=== PATIENT | male | born 1945 | race Caucasian/White ===

== ENCOUNTER → 2018-04-06 15:10 | Outpatient (CLI) | payer MEDICARE, SELFPAY ==
[2018-04-06 16:02] LABS: Add Manual Diff / Slide Review NO; Basophils Percent Auto 0.7 % (0-2); Eosinophils Percent Auto 5.6 % (2-4); Hemoglobin 14.6 g/dL (13.5-17.5); Lymphocytes Percent Auto 12.8 % (25-40); Mean Corpuscular HGB Conc 34.7 % (30-36); Mean Corpuscular Hemoglobin 33.9 PG (26-34); Mean Corpuscular Volume 97.8 fL (80-100); Monocytes Percent Auto 8.4 % (3-14); Neutrophils Absolute Auto 4300 /uL (3000-5900); Neutrophils Percent Auto 72.5 % (50-75); Platelet Count 183 X10^3/uL (150-400); Red Blood Cell Count 4.29 X10^6/uL (4.5-5.9); Red Cell Distribution Width 12.9 % (11.6-14.8)
[2018-04-06 17:21] LABS: Alanine Aminotransferase 46 IU/L (21-72); Albumin 3.5 g/dL (3.5-5.0); Albumin Globulin Ratio 1.3 (1.0-2.8); Alkaline Phosphatase 80 U/L (38-126); Aspartate Aminotransferase 34 IU/L (17-59); BUN Creatinine Ratio 24.4 (6-22); Bilirubin Total 0.9 mg/dL (0.2-1.3); Blood Urea Nitrogen 22 mg/dL (9-20); Calcium 9.2 mg/dL (8.4-10.2); Carbon Dioxide 28 mmol/L (22-32); Chloride 101 mmol/L (98-107); Estimated Glomerular Filt Rate > 60.0 mL/min (>60); Globulin 2.8 g/dL (1.7-4.1); Glucose 171 mg/dL (80-110); HEMOLYSIS < 15 (0-50); Potassium 4.5 mmol/L (3.4-5.1); Sodium 138 mmol/L (137-145); Total Protein 6.3 g/dL (6.3-8.2)
[2018-04-08 15:30] LABS: Cancer (Carbohydrate) Ag 19-9 < 3 U/mL (< 34)
== END ==
PROVIDERS: PCP Family Medicine; Visit Provider Internal Medicine
DX: C23 Malignant neoplasm of gallbladder (principal)
CPT/HCPCS: 36415; 80053; 85025; 86301

== ENCOUNTER 2018-05-15 15:13 | Inpatient (IN) | payer MEDICARE, SELFPAY ==
[2018-05-15 15:32] VITALS: BP 178/95; PULSE 65; RESP 22; TEMP 35.9; O2SAT 94; BMI 36.6
--- NOTE | 2018-05-15 16:05 | DI.RAD.S_ITS ---
PROCEDURE: XR CHEST 1V INDICATIONS: chest pain TECHNIQUE: One view of the chest was acquired. COMPARISON: [facility], CR, XR CHEST 1VW (PORTABLE), 05/09/2017, 15:34. [facility], CT, CT ANGIO CHEST PE, 05/09/2017, 18:05. FINDINGS: Surgical changes and devices: Surgical clips in the lower neck. Lungs and pleura: No pleural effusions or pneumothorax. Lungs are clear. Mediastinum: Mediastinal contours appear normal. Heart size is normal. Bones and chest wall: No suspicious bony lesions. Overlying soft tissues appear unremarkable. IMPRESSION: No acute cardiopulmonary disease. Dictated by: Madhavi Aleman M.D. on 05/15/2018 at 16:18 Approved by: Madhavi Aleman M.D. on 05/15/2018 at 16:21
[2018-05-15] MEDS: ONDANSETRON 4 MG/2 ML INJ IV (18:21)
--- NOTE | 2018-05-15 18:22 | ED.ABDPAIN ---
HPI - Abdominal Pain General Chief Complaint: Abdominal Pain Stated Complaint: STOMACH PAIN Time Seen by Provider: 05/15/18 18:22 Source: patient and family Mode of arrival: ambulatory Limitations: no limitations History of Present Illness HPI narrative: 73-year-old male, former smoker, with relatively recent diagnosis of gallbladder neoplasm presents with epigastric pain and the inability to eat and drink for the past few days. His cholecystectomy was about a year and half ago and subsequent chemo ended last July. His pain is worse with motion and improves with rest. He denies fever or chills. He has had decreased bowel movements. He has not been able to eat food or water at home due to persistent vomiting MD complaint: abdominal pain Onset (ago): day(s) Pain Consistency: constant Location: epigastric Severity: severe Quality: cramping and aching Radiation: epigastric Migration to: no migration Relieving factors: nothing Exacerbating factors: eating Associated symptoms: nausea and vomiting Related Data Home Medications Medication Instructions Recorded Confirmed latanoprost [Xalatan] 1 drp OU HS #2.5 ml 03/08/16 05/15/18 amlodipine [Norvasc] 5 mg PO QDAY #0 09/05/17 05/15/18 levothyroxine 12.5 mcg PO QAM #0 09/05/17 02/05/18 levothyroxine 150 mcg PO QAM #0 09/05/17 05/15/18 brimonidine-timolol [Combigan] 1 drp OPHTHALMIC (EYE) DIRECTED 05/15/18 05/15/18 finasteride 5 mg PO DAILY 05/15/18 05/15/18 fluoxetine 20 mg PO DAILY 05/15/18 05/15/18 metformin 500 mg PO BID 05/15/18 05/15/18 methocarbamol [Robaxin-750] 750 mg PO QIDP PRN 05/15/18 05/15/18 olopatadine 1 dose OPHTHALMIC (EYE) DIRECTED 05/15/18 05/15/18 simvastatin 20 mg PO DAILY 05/15/18 05/15/18 triamterene-hydrochlorothiazid 0.5 tab PO DAILY 05/15/18 05/15/18 zolpidem 5 mg PO BEDTIME 05/15/18 05/15/18 Previous Rx's Medication Instructions Recorded montelukast 10 mg tablet 10 mg PO BEDTIME #30 tab 02/06/18 hydrocodone 5 mg-acetaminophen 325 1 tab PO Q6HP PRN #60 tab 03/26/18 mg tablet trazodone 50 mg tablet 50 mg PO BEDTIME 90 Days #90 tab 05/15/18 Allergies Allergy/AdvReac Type Severity Reaction Status Date / Time Penicillins [PENICILLINS] Allergy Mild RASH Verified 05/15/18 15:38 Review of Systems Review of Systems All systems reviewed & are unremarkable except as noted in HPI and below Constitutional Denies chills, Denies fever(s), Denies lethargy and Denies weakness Eyes Denies change in vision, Denies eye discharge, Denies irritation and Denies loss of vision ENT Ears, Nose, Mouth, and Throat: Denies change in voice, Denies neck pain and Denies sore throat Cardiovascular Denies chest pain, Denies irregular heart rhythm, Denies lightheadedness, Denies palpitations, Denies dyspnea, Denies dyspnea on exertion and Denies orthopnea Respiratory Denies cough, Denies dyspnea, Denies dyspnea on exertion and Denies wheezing Gastrointestinal Gastrointestinal: Reports abdominal pain, Denies change in bowel habits, Denies diarrhea, Reports nausea and Reports vomiting Genitourinary Denies hematuria, Denies flank pain, Denies urinary incontinence and Denies urinary urgency Musculoskeletal Denies neck pain Integumentary/Breasts Denies pruritus, Denies erythema, Denies rash and Denies wounds Neurologic Denies confusion, Denies loss of vision and Denies weakness Psychiatric Denies anxiety, Denies confusion, Denies depression, Denies homicidal ideation and Denies suicidal ideation Endocrine Denies palpitations Hematologic/Lymphatic Denies easy bruising Allergic/Immunologic Denies wheezing [facility] Medical History Allergic rhinitis (Chronic) Benign prostatic hyperplasia with lower urinary tract symptoms (Chronic 05/16/16) 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) Essential hypertension (Chronic 05/16/16) Glaucoma (Chronic 05/16/16) Acquired hypothyroidism (Chronic 05/16/16) Left shoulder pain (Chronic 05/16/16) Pure hypercholesterolemia (Chronic 05/16/16) Restless legs syndrome (Chronic 05/16/16) Type 2 diabetes mellitus without complication, without long-term current use of insulin (Chronic 05/16/16) Depression (Chronic 09/02/16) Right-sided low back pain with right-sided sciatica (Chronic 09/02/16) 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) Chronic fatigue (Chronic 09/05/17) 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) Allergic rhinitis (Chronic Unknown) BPH (benign prostatic hyperplasia) (Chronic Unknown) Depression (Chronic Unknown) Diabetes (Chronic 09/2011) Erectile dysfunction (Chronic Unknown) Glaucoma (Chronic 2005) Hearing loss (Chronic Unknown) Hyperlipemia (Chronic 2008) Hypertension (Chronic 2008) Hypothyroidism (Chronic Unknown) Low testosterone (Chronic Unknown) Osteoarthritis (Chronic Unknown) Sleep apnea (Chronic 1994) Vertigo (Chronic ~1999) Actinic keratosis (Resolved ) Ankle pain (Resolved 1987) Cataracts, bilateral (Resolved ~2004) Chickenpox (Resolved) Colon polyps (Resolved 2014) Fractures (Resolved 1971) Measles (Resolved) Mumps (Resolved) Plantar warts (Resolved ) Retinal detachment (Resolved 1985) Shoulder pain (Resolved ~2014) Thyroid cancer (Resolved 09/2009) Surgical History H/O detached retina repair (Resolved 1985) H/O resection of liver (Resolved ~2016) History of knee replacement (Resolved 08/2014) Hx of cataract surgery (Resolved ~2004) Hx of cholecystectomy (Resolved ~2016) Hx of thyroidectomy (Resolved 2009) S/P discectomy (Resolved 2005) Family History Father Cancer Diabetes mellitus Mother No problems noted. Social History marital status: household members: spouse housing: house Smoking Status: Former smoker alcohol intake: current substance use type: does not use Exam Narrative Exam Narrative: 73-year-old male, obviously feeling unwell and visibly dehydrated with dry mucous membranes Initial Vital Signs Initial Vital Signs: Vital Signs Temperature 96.7 F L 05/15/18 15:32 Pulse Rate 65 05/15/18 15:32 Respiratory Rate 22 05/15/18 15:32 Blood Pressure 178/95 H 05/15/18 15:32 Pulse Oximetry 94 05/15/18 15:32 Const General: cooperative, well developed and in distress Nutritional Appearance: well nourished Orientation: alert, awake, oriented x3 and not confused [facility] Head: normocephalic and atraumatic Ears: external ears normal and TM's normal bilaterally Nose: external nose normal and No nasal discharge Face and sinus: sinuses nontender, face symmetric, no sinus tenderness and dry mucous membranes Mouth: oral mucosae normal and moist mucous membranes Teeth and gingiva: dentition normal Throat: tonsils normal and uvula midline Eyes General: appearance normal, both eyes and all related structures Eyelids: eyelids normal Conjunctivae: conjunctivae normal Sclera: sclerae normal Pupils: PERRL EOM: EOM intact bilaterally Neck Neck: normal visual inspection, trachea midline, No lymphadenopathy, No midline deformity and No JVD Lymphatic: No lymphedema Chest Chest: normal inspection of the chest Resp Effort & Inspection: normal respiratory effort, able to speak in complete sentences, no respiratory distress and no use of accessory muscles Auscultation: clear to auscultation bilaterally, no rales, no rhonchi and no wheezes Cardio Rate: regular rate Rhythm: regular rhythm Heart Sounds: no click, no gallops, no murmurs and no rubs Pulses: normal peripheral pulses GI Inspection: non-distended Palpation: soft, no hepatosplenomegaly, No guarding, No pulsatile mass and tender ( in the epigastric) Auscultation: normal bowel sounds Back/Spine/Pelvis Back: No CVA tenderness Cervical Spine: cervical ROM normal and No pain with cervical ROM Thoracic/Lumbar Spine: thoracic and lumbar spine normal to inspection Skin General: no rashes or lesions noted, No jaundice and No petechiae Neuro General: alert, oriented x3, gait normal and no focal motor deficits Speech: speech normal Extrem General: full ROM, no clubbing, cyanosis or edema, no pedal edema and no calf tenderness Psych Appearance: well kempt Mental Status: mental status grossly normal Attitude: cooperative Thought Content: normal and suicidality Judgment: judgment good Course Course Narrative: patient required multiple doses of IV pain meds during his visit Decision to Admit Date: 05/15/18 Decision to Admit time: 21:31 Orders Ordered: ED Orders 05/15/18 16:05 XR chest 1V Stat EKG-12 Lead Stat 05/15/18 18:18 Complete Blood Count AUTO DIFF Stat Comprehensive Metabolic Panel Stat Lipase Stat Troponin & CK Cardiac Panel Stat 05/15/18 18:25 Partial Thromboplastin Time Stat Prothrombin Time INR Stat 05/15/18 18:30 CT abdomen pelvis w con Stat 05/15/18 21:31 Education, smoking cessation ONGOING 05/16/18 05:00 Basic Metabolic Panel Routine CKMB Panel (CK + CKMB) Routine Complete Blood Count AUTO DIFF Routine Troponin I Routine Enoxaparin Sodium (Lovenox) 40 mg SUBCUT DAILY [facility] Sodium Chloride (Normal Saline 0.9%) 1,000 mls @ 150 mls/hr IV CONT RENETTA Last Admin: 05/15/18 21:52 Dose: 150 mls/hr Morphine Sulfate (Morphine) 2 mg IV Q3H PRN PRN Reason: Pain, Moderate (4-6) Ondansetron HCl (Zofran) 4 mg IV Q4HR PRN PRN Reason: Nausea And Vomiting Oxycodone HCl (Percolone) 5 mg PO Q6HR PRN PRN Reason: Pain, Moderate (4-6) Pantoprazole Sodium (Protonix) 40 mg IV BID [facility] Discontinued Medications Hydromorphone HCl (Dilaudid) 1 mg IV NOW ONE Stop: 05/15/18 18:31 Last Admin: 05/15/18 19:01 Dose: 1 mg Hydromorphone HCl (Dilaudid) 1 mg IV NOW ONE Stop: 05/15/18 19:54 Last Admin: 05/15/18 19:55 Dose: 1 mg Sodium Chloride (Normal Saline 0.9%) 1,000 mls @ 1,000 mls/hr IV BOLUS ONE Stop: 05/15/18 19:29 Last Infusion: 05/15/18 19:55 Dose: 0 mls/hr Admin: 05/15/18 19:01 Dose: 1,000 mls/hr Ondansetron HCl (Zofran) 4 mg IV NOW ONE Stop: 05/15/18 17:59 Last Admin: 05/15/18 18:21 Dose: 4 mg Pantoprazole Sodium (Protonix) 40 mg IV NOW ONE Stop: 05/15/18 20:31 Last Admin: 05/15/18 21:14 Dose: 40 mg Reevaluation(s) Reevaluation #1: slight improvement after 1st dose of IV pain meds Reevaluation #2: pain has returned, we will order more Dilaudid Consultations Consultation #1: Dr. Julian happy to accept patient on her service, will write orders Vital Signs - 8 hr 05/15/18 15:32 05/15/18 19:00 05/15/18 20:30 Temperature 96.7 F L Pulse Rate 65 70 70 Respiratory Rate 22 15 17 Blood Pressure 178/95 H Blood Pressure [Left Arm] 174/88 H 135/83 Pulse Oximetry 94 93 97 05/15/18 21:28 05/15/18 21:35 Temperature 98.1 F 97.5 F L Pulse Rate 76 74 Respiratory Rate 18 19 Blood Pressure 153/83 H 146/87 H Blood Pressure [Left Arm] Pulse Oximetry 96 94 MDM - Abdominal Pain Lab Data Result diagrams: 05/15/18 18:18 05/15/18 18:18 Lab Results 05/15/18 05/15/18 05/15/18 Range/Units 18:18 18:18 18:25 WBC 9.1 (4.5-11.0) X10^3/uL RBC 5.01 (4.5-5.9) X10^6/uL Hgb 16.6 (13.5-17.5) g/dL Hct 48.6 (41-53) % MCV 97.1 (80-100) fL MCH 33.2 (26-34) PG MCHC 34.2 (30-36) % RDW 12.6 (11.6-14.8) % Plt Count 216 (150-400) X10^3/uL Neut % (Auto) 84.8 H (50-75) % Lymph % (Auto) 8.3 L (25-40) % Dickinson % (Auto) 5.4 (3-14) % Eos % (Auto) 1.1 L (2-4) % Baso % (Auto) 0.4 (0-2) % Neut # (Auto) 7700 H (5900-8033) /uL PT 13.3 H (10.1-12.7) SECONDS INR 1.2 (0.9-1.3) APTT 32 (26.4-36.2) SECONDS Sodium 138 (137-145) mmol/L Potassium 3.9 (3.4-5.1) mmol/L Chloride 99 (98-107) mmol/L Carbon Dioxide 28 (22-32) mmol/L BUN 20 (9-20) mg/dL Creatinine 0.90 (0.66-1.25) mg/dL Estimated GFR > 60.0 (>60) mL/min BUN/Creatinine Ratio 22.2 H (6-22) Glucose 158 H (80-110) mg/dL Calcium 9.4 (8.4-10.2) mg/dL Total Bilirubin 1.9 H (0.2-1.3) mg/dL AST 48 (17-59) IU/L ALT 50 (21-72) IU/L Alkaline Phosphatase 65 (38-126) U/L Total Creatine Kinase 486 H (55-170) U/L CK-MB (CK-2) 2.39 H (<2.37) ng/mL CK-MB (CK-2) Rel Index 0.5 L (1.5-5.0) % Troponin I 0.039 H (0.01-0.034) ng/mL Total Protein 7.6 (6.3-8.2) g/dL Albumin 4.4 (3.5-5.0) g/dL Globulin 3.2 (1.7-4.1) g/dL Albumin/Globulin Ratio 1.4 (1.0-2.8) Lipase 19 L (23-300) U/L Point of care testing: Point of Care Testing Glucose POC 120 Discharge Plan Departure Patient Disposition: Admitted as Observation Clinical Impression: Acute duodenitis Discharge Date/Time: 05/15/18 21:29 Interventions: ED Discharge Assessment Last Done: 05/15/18 21:28 Admit Date/Time: 05/15/18 20:32 Admit Provider: Linda Julian
--- NOTE | 2018-05-15 18:30 | DI.CT.S_ITS ---
PROCEDURE: CT ABDOMEN PELVIS W CON INDICATIONS: severe abdominal pain, history of Gallbladder cancer s/p chemo TECHNIQUE: After the administration of intravenous contrast, 5 mm thick sections acquired from the diaphragm to the symphysis. 5 mm coronal and sagittal reformats were acquired. For radiation dose reduction, the following was used: automated exposure control, adjustment of mA and/or kV according to patient size. COMPARISON: [facility], CT, CT ANGIO CHEST PE, 05/09/2017, 18:05. [facility], CT, C-SPINE WITHOUT CONTRAST, 03/08/2016, 13:04. FINDINGS: Image quality: Excellent. ABDOMEN: Lung bases: Lung bases are clear. Heart size is normal. Solid organs: There is a 2.1 cm hypoattenuating lesion involving the anterior right hepatic lobe adjacent the gallbladder fossa, which may or present postsurgical change from gallbladder resection versus a new lesion. Gallbladder is absent. There is mild dilatation of the common bile duct, which can be seen post cholecystectomy. There is a small volume of free fluid in about the inferior vena cava. The pancreas, spleen, and bilateral adrenal glands are unremarkable. Multiple subcentimeter hypoattenuating foci within the kidneys bilaterally are too small to fully characterize on this exam but likely represent renal cysts. There are is a 2.0 cm renal cyst arising from the inferior poor the left kidney no hydronephrosis. Peritoneum and bowel: There is circumferential wall thickening and mucosal hyperemia of the duodenum with adjacent periduodenal fat stranding and fluid.. No free fluid or air. Calcification of the abdominal aorta and branch vessels. Nodes and vessels: No retroperitoneal or mesenteric adenopathy by size criteria. Aorta and inferior vena cava are normal in size. Miscellaneous: No ventral hernias. PELVIS: Genitourinary: Bladder wall thickness is normal. Miscellaneous: No inguinal hernias or adenopathy. Bones: No suspicious bony lesions. No vertebral body compression fractures. Moderate multilevel degenerative changes of the lumbar spine with facet arthropathy noted. IMPRESSION: #1. Circumferential wall thickening and mucosal hyperemia of the duodenum with adjacent fat stranding and fluid, consistent with acute duodenitis. An infiltrating malignancy is not excluded. #2. 2.1 cm anterior right hepatic lobe lesion, which may represent sequela from prior gallbladder resection versus a hypoattenuating hepatic metastasis. No comparison abdominal imaging is available. Attention on followup CT of the abdomen recommended. Dictated by: Gildardo Lopez M.D. on 05/15/2018 at 19:47 Approved by: Gildardo Lopez M.D. on 05/15/2018 at 20:00
[2018-05-15 18:31] LABS: Add Manual Diff / Slide Review NO; Basophils Percent Auto 0.4 % (0-2); Eosinophils Percent Auto 1.1 % (2-4); Hematocrit 48.6 % (41-53); Hemoglobin 16.6 g/dL (13.5-17.5); Lymphocytes Percent Auto 8.3 % (25-40); Mean Corpuscular HGB Conc 34.2 % (30-36); Mean Corpuscular Hemoglobin 33.2 PG (26-34); Mean Corpuscular Volume 97.1 fL (80-100); Monocytes Percent Auto 5.4 % (3-14); Neutrophils Absolute Auto 7700 /uL (3000-5900); Neutrophils Percent Auto 84.8 % (50-75); Platelet Count 216 X10^3/uL (150-400); Red Blood Cell Count 5.01 X10^6/uL (4.5-5.9); Red Cell Distribution Width 12.6 % (11.6-14.8); White Blood Cell Count 9.1 X10^3/uL (4.5-11.0)
[2018-05-15 18:38] LABS: Alanine Aminotransferase 50 IU/L (21-72); Albumin 4.4 g/dL (3.5-5.0); Albumin Globulin Ratio 1.4 (1.0-2.8); Alkaline Phosphatase 65 U/L (38-126); Aspartate Aminotransferase 48 IU/L (17-59); BUN Creatinine Ratio 22.2 (6-22); Bilirubin Total 1.9 mg/dL (0.2-1.3); Blood Urea Nitrogen 20 mg/dL (9-20); Calcium 9.4 mg/dL (8.4-10.2); Carbon Dioxide 28 mmol/L (22-32); Chloride 99 mmol/L (98-107); Creatine Kinase 486 U/L (55-170); Estimated Glomerular Filt Rate > 60.0 mL/min (>60); Globulin 3.2 g/dL (1.7-4.1); Glucose 158 mg/dL (80-110); HEMOLYSIS < 15 (0-50); Lipase 19 U/L (23-300); Potassium 3.9 mmol/L (3.4-5.1); Sodium 138 mmol/L (137-145); Total Protein 7.6 g/dL (6.3-8.2)
[2018-05-15 18:39] LABS: INR 1.2 (0.9-1.3); Prothrombin Time 13.3 SECONDS (10.1-12.7)
[2018-05-15 18:42] LABS: PTT Partial Thromboplastin Tim 32 SECONDS (26.4-36.2)
[2018-05-15 18:50] LABS: Troponin I 0.039 ng/mL (0.01-0.034)
[2018-05-15 18:54] LABS: CKMB % Relative Index 0.5 % (1.5-5.0); Creatine Kinase MB 2.39 ng/mL (<2.37)
[2018-05-15 19:00] VITALS: BP 174/88; PULSE 70; RESP 15; O2SAT 93
[2018-05-15] MEDS: HYDROMORPHONE 1 MG INJ IV ×2 (19:01→19:55)
[2018-05-15] MEDS: SODIUM CHLORIDE 0.9% 1,000 ML 1000 ML IV (19:01)
[2018-05-15 20:30] VITALS: BP 135/83; PULSE 70; RESP 17; O2SAT 97
[2018-05-15] MEDS: PANTOPRAZOLE 40 MG VIAL IV (21:14)
[2018-05-15 21:28] VITALS: BP 153/83; PULSE 76; RESP 18; TEMP 36.7; O2SAT 96
[2018-05-15 21:35] VITALS: BP 146/87; PULSE 74; RESP 19; TEMP 36.4; O2SAT 94
[2018-05-15 21:39] VITALS: BMI 36.2
[2018-05-15] MEDS: SODIUM CHLORIDE 0.9% 1,000 ML 150 ML IV (21:52)
--- NOTE | 2018-05-15 22:01 | PC.NURSE ---
Pt to acute care from ER. Transferred via stretcher, ambulated to bed, unsteady gait at baseline. Abdominal pain 4/10, reports meds given in ER helping pain level. Alert/oriented. Reports last BM 5 days ago. Oriented to room and call light. Bed alarm on.
[2018-05-16] VITALS (16 sets, daily range): BP systolic 115–162; BP diastolic 67–97; PULSE 60–72; RESP 14–92; TEMP 36.4–36.8; O2SAT 92–98
--- NOTE | 2018-05-16 | PATH_ITS ---
[facility] Accession Number: [id number] . 01 Material submitted: . PART A: DUODENUM: 1ST AND 2ND PART JUNCTION PART B: RANDOM GASTRIC BIOPSIES . 02 Diagnosis: A. Biopsy Duodenum, First and Second Parts: Duodenal mucosa with focal acute inflammation and prominent area of ulceration. Negative for evidence of neoplasm. . B. Random Gastric Biopsies: Mucosal hyperemia without associated significant inflammation involving antral and fundic mucosa. Negative for evidence of Helicobacter on H/E stain. Negative for intestinal metaplasia. Negative for dysplasia and malignancy. MRV/05/19/2018 . 02 Electronically signed: . Everton Stratton MD, Pathologist NPI- [id number] . 01 Gross description: . Received two formalin-filled containers, both labeled with the patient's name: . A. In a container labeled duodenum first, second part of junction, are two 0.1 cm portions of tissue, entirely submitted in cassette A. B. In a container labeled stomach random, are two 0.1-0.3 cm portions of tissue, entirely submitted in cassette B. ([id number]) /FRR . 02 Pathologist provided ICD-10: K26.9 . 02 CPT . 190891, 139449 Performed at: 01 [facility] [address], [place], [place] [id number] MD Triston Huertas MD Phone: [phone] Performed at: 02 [facility] [address] [place], [place] [id number] MD Kurt Lynn MD Phone: [phone]
--- NOTE | 2018-05-16 04:43 | PC.NURSE ---
shift note Met with pt at start of shift. AOx3. Complained of abd pain /. Refused PRN pain meds. Mentioned he does not like oxycodone due to have nausea from it in the past. Pt able to sleep through the night. Placed on telemetry per MD orders. Call light in reach.
[2018-05-16 06:19] LABS: Add Manual Diff / Slide Review NO; Basophils Percent Auto 0.5 % (0-2); Eosinophils Percent Auto 3.8 % (2-4); Hematocrit 42.5 % (41-53); Hemoglobin 14.7 g/dL (13.5-17.5); Lymphocytes Percent Auto 16.5 % (25-40); Mean Corpuscular HGB Conc 34.6 % (30-36); Mean Corpuscular Hemoglobin 33.5 PG (26-34); Mean Corpuscular Volume 96.9 fL (80-100); Monocytes Percent Auto 11.1 % (3-14); Neutrophils Absolute Auto 4800 /uL (3000-5900); Neutrophils Percent Auto 68.1 % (50-75); Platelet Count 180 X10^3/uL (150-400); Red Blood Cell Count 4.39 X10^6/uL (4.5-5.9); Red Cell Distribution Width 12.5 % (11.6-14.8)
[2018-05-16 06:28] LABS: BUN Creatinine Ratio 18.9 (6-22); Blood Urea Nitrogen 17 mg/dL (9-20); Calcium 8.4 mg/dL (8.4-10.2); Carbon Dioxide 29 mmol/L (22-32); Chloride 103 mmol/L (98-107); Creatine Kinase 319 U/L (55-170); Estimated Glomerular Filt Rate > 60.0 mL/min (>60); Glucose 108 mg/dL (80-110); HEMOLYSIS 16 (0-50); Potassium 3.6 mmol/L (3.4-5.1); Sodium 138 mmol/L (137-145)
[2018-05-16] MEDS: SODIUM CHLORIDE 0.9% 1,000 ML 150 ML IV (06:34)
[2018-05-16 06:39] LABS: Troponin I 0.036 ng/mL (0.01-0.034)
[2018-05-16 06:43] LABS: CKMB % Relative Index 0.6 % (1.5-5.0); Creatine Kinase MB 2.05 ng/mL (<2.37)
--- NOTE | 2018-05-16 07:55 | PM.HP.1 ---
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 Patient states everything started about 5 weeks ago during which time he was using antidiarrheal medication for chemo induced diarrhea. Patient felt the pain in the epigastric region, burning in nature, that would usually occur in the middle of the night and disturb his sleep. Nevertheless, the over the past 2 weeks, he has noted symptoms in the daytime as well. Pain only progressed to the point where patient has not been able to eat normal food, or drink normal fluids. Patient has had some weight loss, partly due to not being able to eat. Patient does experience metallic taste in his mouth, and throat burning. He feels acidic reflux especially when he lays down. Patient denies any loss of consciousness, dizziness, blurry vision. Has occasional headaches. Denies any chest pain, however has been complaining of shortness of breath, but contributes it to inability to take full breaths from epigastric pain. Denies any diarrhea or constipation. Patient has been nauseous for the past 5 weeks, and has experienced a few episodes of vomiting, nonbilious nonbloody. Denies melenic stools. Denies symptoms. Of note, the patient has been diagnosed with gallbladder cancer July of 2017, during which time he underwent cholecystectomy. He then started on chemotherapy, and completed that October of 2017. Patient also has extensive history of aspirin and motrin use for his headaches. 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) Essential hypertension (Chronic 05/16/16) Glaucoma (Chronic 05/16/16) Acquired hypothyroidism (Chronic 05/16/16) Left shoulder pain (Chronic 05/16/16) Pure hypercholesterolemia (Chronic 05/16/16) Restless legs syndrome (Chronic 05/16/16) Type 2 diabetes mellitus without complication, without long-term current use of insulin (Chronic 05/16/16) Depression (Chronic 09/02/16) Right-sided low back pain with right-sided sciatica (Chronic 09/02/16) 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) Chronic fatigue (Chronic 09/05/17) 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) Allergic rhinitis (Chronic Unknown) BPH (benign prostatic hyperplasia) (Chronic Unknown) Depression (Chronic Unknown) Diabetes (Chronic 09/2011) Erectile dysfunction (Chronic Unknown) Glaucoma (Chronic 2005) Hearing loss (Chronic Unknown) Hyperlipemia (Chronic 2008) Hypertension (Chronic 2008) Hypothyroidism (Chronic Unknown) Low testosterone (Chronic Unknown) Osteoarthritis (Chronic Unknown) Sleep apnea (Chronic 1994) Vertigo (Chronic ~1999) Actinic keratosis (Resolved ) Ankle pain (Resolved 1987) Cataracts, bilateral (Resolved ~2004) Chickenpox (Resolved) Colon polyps (Resolved 2014) Fractures (Resolved 1971) Measles (Resolved) Mumps (Resolved) Plantar warts (Resolved ) Retinal detachment (Resolved 1985) Shoulder pain (Resolved ~2014) Thyroid cancer (Resolved 09/2009) Surgical History H/O detached retina repair (Resolved 1985) H/O resection of liver (Resolved ~2016) History of knee replacement (Resolved 08/2014) Hx of cataract surgery (Resolved ~2004) Hx of cholecystectomy (Resolved ~2016) Hx of thyroidectomy (Resolved 2009) S/P discectomy (Resolved 2005) Family & Social History Family History Father Cancer Diabetes mellitus Mother No problems noted. Social History: household members spouse Prior Living Arrangements House Safety & Behavioral: Feels Safe in Current Yes Environment Been Physically Hurt or No Threatened By a Person Suicidal Ideation Description None Tobacco & Substance use: Smoking Status Former smoker alcohol intake current alcohol intake frequency holiday/special occasion Substance Use Type does not use Meds Home Medications Medication Instructions Recorded Confirmed Type latanoprost [Xalatan] 1 drp OU HS #2.5 ml 03/08/16 05/15/18 History amlodipine [Norvasc] 5 mg PO QDAY #0 09/05/17 05/15/18 History levothyroxine 12.5 mcg PO QAM #0 09/05/17 02/05/18 History levothyroxine 150 mcg PO QAM #0 09/05/17 05/15/18 History montelukast 10 mg tablet 10 mg PO BEDTIME #30 tab 02/06/18 05/15/18 Rx hydrocodone 5 mg-acetaminophen 325 1 tab PO Q6HP PRN #60 tab 03/26/18 05/15/18 Rx mg tablet brimonidine-timolol [Combigan] 1 drp OPHTHALMIC (EYE) DIRECTED 05/15/18 05/15/18 History finasteride 5 mg PO DAILY 05/15/18 05/15/18 History fluoxetine 20 mg PO DAILY 05/15/18 05/15/18 History metformin 500 mg PO BID 05/15/18 05/15/18 History methocarbamol [Robaxin-750] 750 mg PO QIDP PRN 05/15/18 05/15/18 History olopatadine 1 dose OPHTHALMIC (EYE) DIRECTED 05/15/18 05/15/18 History simvastatin 20 mg PO DAILY 05/15/18 05/15/18 History trazodone 50 mg tablet 50 mg PO BEDTIME 90 Days #90 tab 05/15/18 05/15/18 Rx triamterene-hydrochlorothiazid 0.5 tab PO DAILY 05/15/18 05/15/18 History zolpidem 5 mg PO BEDTIME 05/15/18 05/15/18 History Allergies Allergy/AdvReac Type Severity Reaction Status Date / Time Penicillins [PENICILLINS] Allergy Mild RASH Verified 05/15/18 15:38 Review of Systems Review of Systems All systems reviewed & are unremarkable except as noted in HPI and below Exam Vital Signs (past 8 hours): - 05/16/18 00:35 05/16/18 00:53 05/16/18 03:14 Temperature 97.9 F 97.7 F Pulse Rate 68 60 Respiratory Rate 20 18 Blood Pressure 127/77 130/81 Pulse Oximetry 97 95 97 Oxygen Delivery Method Room Air Narrative Exam Narrative: General: Mild distress, AAOx3. HEENT: PERRLA BL, no sleral icterus Neck: Supple, Obese neck CV: RRR, no murmurs or gallops Resp: CTA BL, no wheezing GI: epigastric tenderness with deep palpation. Obese abdomen. +BS, soft. No lesions/brusing/organomegally present MSK: Moves all extremities Skin: No bruising/rashes Neuro: NFD Psych: Slightly anxious, AAOx3 Objective Labs Result Diagrams: 05/16/18 05:37 05/16/18 05:37 Labs: Laboratory Results - last 24 hr 05/15/18 05/15/18 05/15/18 18:18 18:18 18:25 WBC 9.1 RBC 5.01 Hgb 16.6 Hct 48.6 MCV 97.1 MCH 33.2 MCHC 34.2 RDW 12.6 Plt Count 216 Neut % (Auto) 84.8 H Lymph % (Auto) 8.[address] [place] % (Auto) 5.4 Eos % (Auto) 1.1 L Baso % (Auto) 0.4 Neut # (Auto) 7700 H PT 13.3 H INR 1.2 APTT 32 Sodium 138 Potassium 3.9 Chloride 99 Carbon Dioxide 28 BUN 20 Creatinine 0.90 Estimated GFR > 60.0 BUN/Creatinine Ratio 22.2 H Glucose 158 H Calcium 9.4 Total Bilirubin 1.9 H AST 48 ALT 50 Alkaline Phosphatase 65 Total Creatine Kinase 486 H CK-MB (CK-2) 2.39 H CK-MB (CK-2) Rel Index 0.5 L Troponin I 0.039 H Total Protein 7.6 Albumin 4.4 Globulin 3.2 Albumin/Globulin Ratio 1.4 Lipase 19 L 05/16/18 05/16/18 05:37 05:37 WBC 7.0 RBC 4.39 L Hgb 14.7 Hct 42.5 MCV 96.9 MCH 33.5 MCHC 34.6 RDW 12.5 Plt Count 180 Neut % (Auto) 68.1 Lymph % (Auto) 16.[address] 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 He was found to have acute duodenitis and admitted to acute care unit for further management. 1. Acute Duodenitis - [place] from asa/motrin use vs recurrence of cancer vs other - CT Abd/Pelvis revealed circumferential wall thickening and mucosal hyperemia of the duodenum with adjacent fat stranding and fluid, consistent with acute duodenitis. Infiltrating malignancy is not excluded. - patient is afebrile, with no leukocytosis. - continue Protonix IV 40 mg b.i.d., Zofran PRN for nausea, and Morphine for pain control - continue IV fluids and NPO for now - surgery consulted for EGD, will follow up 2. DM - BG stable. Patient takes Metformin at home - Will switch patient to D5NS as patient is NPO - Sliding scale, frequent accuchecks 3. HTN - BP is stable - Continue to hold all PO medications and monitor 4. ANA M - Continue CPAP 5. Gall bladder cancer - S/p resection and chemotherapy completion in october. Follows up in [place] for 6 month imaging repeats 6. Hepatic Lesion - CT ABd/pelvis revealed 2.1 cm anterior right hepatic lobe lesion, which may represent sequela from prior gallbladder resection versus a hypoattenuating hepatic metastasis. - No comparison abdominal imaging is available. Attention on followup CT of the abdomen recommended - Will have patient follow up outpatient 7. Hypothyroidism - Patient takes 162mcg PO Synthroid daily...Will switch to 80mcg IV 8. Hyperlipidemia - Statin when patient can take PO Quality VTE Deep Vein Thrombosis/Pulmonary Embolism Present on Admission: No
[2018-05-16] MEDS: DEXTROSE 5%-0.9% NS 1,000 ML 150 ML IV (08:46)
[2018-05-16] MEDS: MORPHINE 2 MG/ML INJ IV ×2 (08:49→18:55)
[2018-05-16] MEDS: PANTOPRAZOLE 40 MG VIAL IV (08:59)
--- NOTE | 2018-05-16 10:09 | PM.CN ---
History of Present Illness Date Patient Seen: 05/16/18 Time Patient Seen: 08:51 Chief complaint: STOMACH PAIN Reason for consult: Evaluate duodenum Narrative: Patient is a gentleman with a 5 week history of epigastric pain. It has been intermittent in nature but becoming more severe with time. He has really not done anything about it because he thought it was gas pain. until the last 2 days it became quite severe. He came to the emergency room was admitted for dehydration in evaluation of this pain. He has not been tolerating p.o. well. He is able to eat breakfast usually. He gets nauseated. Has not vomited however until admission. No prior history of these symptoms. Of note patient is under treatment for gallbladder cancer. 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) Essential hypertension (Chronic 05/16/16) Glaucoma (Chronic 05/16/16) Acquired hypothyroidism (Chronic 05/16/16) Left shoulder pain (Chronic 05/16/16) Pure hypercholesterolemia (Chronic 05/16/16) Restless legs syndrome (Chronic 05/16/16) Type 2 diabetes mellitus without complication, without long-term current use of insulin (Chronic 05/16/16) Depression (Chronic 09/02/16) Right-sided low back pain with right-sided sciatica (Chronic 09/02/16) 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) Chronic fatigue (Chronic 09/05/17) 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) Allergic rhinitis (Chronic Unknown) BPH (benign prostatic hyperplasia) (Chronic Unknown) Depression (Chronic Unknown) Diabetes (Chronic 09/2011) Erectile dysfunction (Chronic Unknown) Glaucoma (Chronic 2005) Hearing loss (Chronic Unknown) Hyperlipemia (Chronic 2008) Hypertension (Chronic 2008) Hypothyroidism (Chronic Unknown) Low testosterone (Chronic Unknown) Osteoarthritis (Chronic Unknown) Sleep apnea (Chronic 1994) Vertigo (Chronic ~1999) Actinic keratosis (Resolved Unknown) Ankle pain (Resolved 1987) Cataracts, bilateral (Resolved ~2004) Chickenpox (Resolved) Colon polyps (Resolved 2014) Fractures (Resolved 1971) Measles (Resolved) Mumps (Resolved) Plantar warts (Resolved Unknown) Retinal detachment (Resolved 1985) Shoulder pain (Resolved ~2014) Thyroid cancer (Resolved 09/2009) Surgical History H/O detached retina repair (Resolved 1985) H/O resection of liver (Resolved ~2016) History of knee replacement (Resolved 08/2014) Hx of cataract surgery (Resolved ~2004) Hx of cholecystectomy (Resolved ~2016) Hx of thyroidectomy (Resolved 2009) S/P discectomy (Resolved 2005) Family History Father Cancer Diabetes mellitus Mother No problems noted. Social History marital status: household members: spouse housing: house Smoking Status: Former smoker alcohol intake: current substance use type: does not use Meds Home Medications Medication Instructions Recorded Confirmed Type latanoprost [Xalatan] 1 drp OU HS #2.5 ml 03/08/16 05/15/18 History amlodipine [Norvasc] 5 mg PO QDAY #0 09/05/17 05/15/18 History levothyroxine 12.5 mcg PO QAM #0 09/05/17 02/05/18 History levothyroxine 150 mcg PO QAM #0 09/05/17 05/15/18 History montelukast 10 mg tablet 10 mg PO BEDTIME #30 tab 02/06/18 05/15/18 Rx hydrocodone 5 mg-acetaminophen 325 1 tab PO Q6HP PRN #60 tab 03/26/18 05/15/18 Rx mg tablet brimonidine-timolol [Combigan] 1 drp OPHTHALMIC (EYE) DIRECTED 05/15/18 05/15/18 History finasteride 5 mg PO DAILY 05/15/18 05/15/18 History fluoxetine 20 mg PO DAILY 05/15/18 05/15/18 History metformin 500 mg PO BID 05/15/18 05/15/18 History methocarbamol [Robaxin-750] 750 mg PO QIDP PRN 05/15/18 05/15/18 History olopatadine 1 dose OPHTHALMIC (EYE) DIRECTED 05/15/18 05/15/18 History simvastatin 20 mg PO DAILY 05/15/18 05/15/18 History trazodone 50 mg tablet 50 mg PO BEDTIME 90 Days #90 tab 05/15/18 05/15/18 Rx triamterene-hydrochlorothiazid 0.5 tab PO DAILY 05/15/18 05/15/18 History zolpidem 5 mg PO BEDTIME 05/15/18 05/15/18 History Allergies Allergy/AdvReac Type Severity Reaction Status Date / Time Penicillins [PENICILLINS] Allergy Mild RASH Verified 05/15/18 15:38 Review of Systems Review of Systems Denies any chest pain or heart problems in the past. No cough cold or asthma. No black or bloody bowel movements. No seizures or blackouts. He does have a peripheral neuropathy. Glucoses are fairly well controlled and this morning on testing was about 120. He has had thyroid cancer with resection and is on thyroid medication. Exam Vital Signs (past 8 hours): - 05/16/18 03:14 05/16/18 07:50 Temperature 97.7 F 97.6 F Pulse Rate 60 63 Respiratory Rate 18 16 Blood Pressure 130/81 162/97 H Pulse Oximetry 97 Oxygen Delivery Method Room Air Oxygen Flow Rate 96 Narrative Exam Narrative: Obese pleasant gentleman no apparent distress. His eyes are nonicteric. Neck is supple. He is a bit overweight. I do not feel any nodes in the neck or supraclavicular areas. Difficult to appreciate any distinct structures. Heart regular rate and rhythm without murmur gallop. No bruit in the neck. His lungs are clear to auscultation without rales or rhonchi. Abdomen is protuberant soft. There is mild tenderness in the epigastrium. No tenderness elsewhere. Scars from his laparoscopic gallbladder procedure/liver resection are noted. Objective Imaging CT scan - abdomen: My impression: Thickening the entire duodenal sweep. The stomach looks fairly spared of any problem. The common duct appears to be dilated. The stomach is small and not dilated. Labs Result Diagrams: 05/16/18 05:37 05/16/18 05:37 Labs: Laboratory Results - last 24 hr 05/15/18 05/15/18 05/15/18 18:18 18:18 18:25 WBC 9.1 RBC 5.01 Hgb 16.6 Hct 48.6 MCV 97.1 MCH 33.2 MCHC 34.2 RDW 12.6 Plt Count 216 Neut % (Auto) 84.8 H Lymph % (Auto) 8.3 L [place] % (Auto) 5.4 Eos % (Auto) 1.1 L Baso % (Auto) 0.4 Neut # (Auto) 7700 H PT 13.3 H INR 1.2 APTT 32 Sodium 138 Potassium 3.9 Chloride 99 Carbon Dioxide 28 BUN 20 Creatinine 0.90 Estimated GFR > 60.0 BUN/Creatinine Ratio 22.2 H Glucose 158 H Calcium 9.4 Total Bilirubin 1.9 H AST 48 ALT 50 Alkaline Phosphatase 65 Total Creatine Kinase 486 H CK-MB (CK-2) 2.39 H CK-MB (CK-2) Rel Index 0.5 L Troponin I 0.039 H Total Protein 7.6 Albumin 4.4 Globulin 3.2 Albumin/Globulin Ratio 1.4 Lipase 19 L 05/16/18 05/16/18 05:37 05:37 WBC 7.0 RBC 4.39 L Hgb 14.7 Hct 42.5 MCV 96.9 MCH 33.5 MCHC 34.6 RDW 12.5 Plt Count 180 Neut % (Auto) 68.1 Lymph % (Auto) 16.5 L [place] % (Auto) 11.1 Eos % (Auto) 3.8 Baso % (Auto) 0.5 Neut # (Auto) 4800 PT INR APTT Sodium 138 Potassium 3.6 Chloride 103 Carbon Dioxide 29 BUN 17 Creatinine 0.90 Estimated GFR > 60.0 BUN/Creatinine Ratio 18.9 Glucose 108 Calcium 8.4 Total Bilirubin AST ALT Alkaline Phosphatase Total Creatine Kinase 319 H CK-MB (CK-2) 2.05 CK-MB (CK-2) Rel Index 0.6 L Troponin I 0.036 H Total Protein Albumin Globulin Albumin/Globulin Ratio Lipase Assessment & Plan Plan: Assessment/Plan Narrative: Patient is a gentleman with an abnormal duodenum and biliary tree post resection for gallbladder cancer. I do not have this staging at this time. He does not appear to have a gastric outlet obstruction based on his history and on the CT findings. His stomach is not dilated any does tolerate foods the only vomiting having occurred recently. He just does not take in a great deal. The pain has been present for 5 weeks. It is possibly has a local perforation as well. Though I would not expect a localized perforation to result in the entire duodenal sweep appearing thickened. He told me he did have proton therapy and I do not know if the henderson included is duodenum but they probably would have included at least portions of it. So this is possibly related to radiation. His diabetes seems well controlled. Will proceed to EGD. I have discussed the procedure and rationale with him. Risks of bleeding infection perforation were discussed. He appears to understand wishes to proceed.
[2018-05-16] MEDS: TETRACAINE/BENZOCAINE/BUTAMBEN (CETACAINE) BOTTLE 1 SPRAY TOP (10:15)
[2018-05-16] MEDS: LIDOCAINE 4% SOLN 50 ML 20 ML TOP (10:15)
--- NOTE | 2018-05-16 10:19 | PM.PREOP ---
Pre-operative Note Interval Note Pre-op Check: Yes History & Physical exam performed today by Physician Changes: No ASA Class (for procedural sedation): III
[2018-05-16] MEDS: SODIUM CHLORIDE 0.9% 1,000 ML 42 ML IV ×2 (10:30→11:54)
--- NOTE | 2018-05-16 10:36 | PM.OP.ENDO ---
Operative Date/Time/Diagnoses Date of procedure: 05/16/18 Time of procedure: 10:38 Pre-op diagnosis: Epigastric pain, abnormal CT scan of the duodenum. Dehydration and poor p.o. intake. Post-op diagnosis: same (Duodenal ulcer at the junction of 1st and 2nd parts the duodenum. Marked narrowing through that area of the ulcer. Duodenum distal to the ulcer is normal in appearance. Proximally it is inflamed.) Procedure & Clinicians Study performed: EGD with cold biopsy Same procedure as scheduled: Yes Indications: Diagnostic Surgeon: Terry Cornejo Procedure Notes SCOAP/Timeout: Performed Procedure in detail: The patient had topical anesthetic applied to oropharynx. She was placed in left lateral decubitus position and underwent IV sedation directed by the surgeon consisting of fentanyl and Versed. A bite block was inserted and the scope was advanced through it into the esophagus. The esophagus was unremarkable. GE junction was noted at 42 cm from the incisors. The stomach insufflated well. It was inflamed diffusely. There were no ulcers seen in the body, antrum or at the incisura. The pyloric channel was patent and slightly edematous. The duodenum was quite abnormal. The proximal ball was fairly normal but the distal bulb appeared to have granulation tissue and a narrowing. The channel barely allowed the 1.1 cm diameter scope to pass through it . At that junction there was a deep ulcer crater. There was fibrinous exudate lining the entire ulcer cavity. There was no evidence of recent bleed. There were no visible vessels. Just beyond the ulcer the remainder of the 2nd and the 3rd and 4th parts of the duodenum appeared to be normal endoscopically speaking. Biopsies were taken not only of the granulation appearing tissue proximal to the ulcer but also near the ulcer itself. The scope was brought back into the stomach and retroflexed. Random biopsies were taken in the stomach to rule out H pylori. The scope was straightened and brought out through the esophagus again. No lesions were seen in the esophagus. The scope was removed and the patient tolerated the procedure well. Scope withdrawal time: Not applicable Findings: duodenal ulcer and gastritis Recommendations: Start medication(s) (Proton pump inhibitor) Plan for aftercare: May need repeat scope in 3 months to confirm healing depending upon the progress of his gallbladder cancer treatment and the biopsy results. Disposition: PACU
[2018-05-16] MEDS: fentaNYL 250 MCG/5 ML INJ IV (10:43)
[2018-05-16] MEDS: MIDAZOLAM 5 MG/ML VIAL IV (10:45)
--- NOTE | 2018-05-16 11:14 | SUR.PHASEI ---
bedside report given to jose alfredo shelby on acute care floor. pt family at bedside. pt care transfered to jose alfredo shelby in stable condition, vss.
[2018-05-16] MEDS: AMLODIPINE 5 MG TABLET PO (11:16)
[2018-05-16] MEDS: INSULIN ASPART 100 UNIT/ML INSULN PEN SUBCUT ×2 (11:56→17:03)
[2018-05-16] MEDS: ENOXAPARIN 40 MG/0.4 ML SYRINGE SUBCUT (12:03)
--- NOTE | 2018-05-16 16:34 | CM.IDA ---
Discharge Planning/Care Management CM Discharge Assessment Start: 05/16/18 16:29 Freq: Status: Active Protocol: Document 05/16/18 16:30 GERALDO (Rec: 05/16/18 16:34 GERALDO [id number]) Discharge Planning Assessment Assigned [employer] Helper DARYN Diggs DPOA/Assigned Designee Name Radha Parisi, spouse Contact Information [phone] Advance Directives? No History Provided By Patient Family Member Prior Living Arrangements House Household Members spouse Type of transporation used prior to Relies on Others admit Comment spouse Independent with ADL's Yes Is patient alert and oriented? Yes Comment If assist needed, spouse there and capable, dtrs one hour away in [facility]. Dtr Lucero Stanley cell Barriers to Discharge No Comment Home w/family and close outpt f/u. Discharge Plan Home Transportation Arrangement Family Referrals Initiated None needed Additional Comment Met w/ pt and dtr Lizeth, spouse at home catching up on sleep. Pt mostly indp at baseline. H/o gallbladder cancer, chemo and extensive treatment course. Spouse and dtrs are very supportive and pt is eager to return home when ready, Dr Julian expects Friday. Dr Cornejo consulted today and found a hernia; f/u in the outpt setting per his rec. Likely no needs upon DC home w /family. Whiteboard Updated in Patient Room with Yes name and ext. # of [employer] Operator Helper Review Status In Process DARYN Sanchez
[2018-05-16] MEDS: metroNIDAZOLE 250 MG TABLET 375 MG PO ×2 (17:04→21:06)
[2018-05-16] MEDS: BISMUTH SUBSALICYLATE 525 MG/30 ML SUSP 25 ML PO (17:22)
[2018-05-16] MEDS: FINASTERIDE 5 MG TABLET PO (21:04)
[2018-05-16] MEDS: DOXYCYCLINE HYCLATE 100 MG TABLET PO (21:04)
[2018-05-16] MEDS: PANTOPRAZOLE 20 MG TABLET PO (21:07)
[2018-05-16] MEDS: BENZOCAINE/MENTHOL 1 LOZ PKT 1 EACH PO (21:44)
--- NOTE | 2018-05-16 23:24 | PC.NURSE ---
Pt has c/o sore throat repeatedly this evening shift. Contacted Dr. Cornejo via telephone and obtained order for cepacol. Pt content with this action. No difficulty with swallow and has taken clear/full liquids easily this shift. States epigastric pain increases with oral intake. Morphine and bismuth administered as per emar. Standby assistance into bathroom to attempt bowel movement and returned to bed. Tele in place. Spouse has visited this evening shift.
[2018-05-17] VITALS (8 sets, daily range): BP systolic 115–152; BP diastolic 68–90; PULSE 60–81; RESP 16–20; TEMP 36.1–36.8; O2SAT 94–96
--- NOTE | 2018-05-17 | DI.RAD.S_ITS ---
PROCEDURE: XR ABDOMEN MIN 2V INDICATIONS: constipation TECHNIQUE: 2 views of the abdomen were acquired. COMPARISON: [facility], CT, CT ABDOMEN PELVIS W CON, 05/15/2018, 18:45. FINDINGS: Surgical changes and devices: None. Bowel: There is a paucity of bowel gas in the lower abdomen. Remainder bowel gas pattern appears nonobstructive. There is a moderate stool burden. Soft tissues: No masses; visualized solid organ contours appear normal in size. No suspicious abdominal calcifications. Bones: No suspicious bony abnormalities. Multilevel degenerative changes of the spine. IMPRESSION: Moderate stool burden. Paucity of small bowel gas in the lower left abdomen; Remainder of bowel gas pattern appears nonobstructive. Dictated by: Gildardo Lopez M.D. on 05/17/2018 at 15:08 Approved by: Gildardo Lopez M.D. on 05/17/2018 at 15:11
[2018-05-17] MEDS: BENZOCAINE/MENTHOL 1 LOZ PKT 1 EACH PO (04:05)
[2018-05-17] MEDS: MORPHINE 2 MG/ML INJ IV (04:07)
--- NOTE | 2018-05-17 05:59 | PC.NURSE ---
shift note met with pt at start of shift. AOx3. Later in shift, complained of abdominal pain and provided prn morphine IV 2mg. Also offered throat lozange. Pt reported decreased pain. Call light in reach.
[2018-05-17 06:08] LABS: Blood Urea Nitrogen 12 mg/dL (9-20); Calcium 8.4 mg/dL (8.4-10.2); Carbon Dioxide 26 mmol/L (22-32); Chloride 106 mmol/L (98-107); Estimated Glomerular Filt Rate > 60.0 mL/min (>60); Glucose 130 mg/dL (80-110); HEMOLYSIS < 15 (0-50); Magnesium 2.2 mg/dL (1.6-2.3); Potassium 3.6 mmol/L (3.4-5.1); Sodium 137 mmol/L (137-145)
[2018-05-17 06:09] LABS: Add Manual Diff / Slide Review NO; Basophils Percent Auto 0.5 % (0-2); Eosinophils Percent Auto 4.2 % (2-4); Hemoglobin 14.4 g/dL (13.5-17.5); Lymphocytes Percent Auto 13.9 % (25-40); Mean Corpuscular Hemoglobin 33.5 PG (26-34); Mean Corpuscular Volume 95.8 fL (80-100); Monocytes Percent Auto 8.9 % (3-14); Neutrophils Absolute Auto 4700 /uL (3000-5900); Neutrophils Percent Auto 72.5 % (50-75); Platelet Count 163 X10^3/uL (150-400); Red Blood Cell Count 4.28 X10^6/uL (4.5-5.9); Red Cell Distribution Width 12.6 % (11.6-14.8); White Blood Cell Count 6.5 X10^3/uL (4.5-11.0)
[2018-05-17 06:19] LABS: Troponin I 0.014 ng/mL (0.01-0.034)
[2018-05-17] MEDS: LEVOTHYROXINE 25 MCG TABLET 12.5 MCG PO (06:29)
[2018-05-17] MEDS: PANTOPRAZOLE 20 MG TABLET PO ×2 (06:29→20:05)
[2018-05-17] MEDS: LEVOTHYROXINE 150 MCG TABLET PO (06:29)
[2018-05-17] MEDS: SODIUM CHLORIDE 0.9% 1,000 ML 42 ML IV (06:30)
[2018-05-17] MEDS: ENOXAPARIN 40 MG/0.4 ML SYRINGE SUBCUT (10:21)
[2018-05-17] MEDS: DOXYCYCLINE HYCLATE 100 MG TABLET PO ×2 (10:22→20:05)
[2018-05-17] MEDS: metroNIDAZOLE 250 MG TABLET 375 MG PO ×4 (10:22→20:52)
[2018-05-17] MEDS: INSULIN ASPART 100 UNIT/ML INSULN PEN SUBCUT ×2 (12:02→17:04)
[2018-05-17] MEDS: FLEETS ENEMA 1 EACH PR (13:21)
[2018-05-17] MEDS: BISACODYL 10 MG SUPP PR (15:06)
--- NOTE | 2018-05-17 18:23 | PC.NURSE ---
Pt up to bathroom independently. No stool at this time. Hyperactive bowel tones. Denies epigastric pain and denies nausea. Full liquid diet. Spouse is present and involved in pt's care.
--- NOTE | 2018-05-17 18:29 | PM.PN.1 ---
Subjective Date Patient Seen: 05/17/18 Time Patient Seen: 16:29 Interval history: History of present illness Follow-up on patient with acute duodenitis. Patient also notes in our conversation today he has not a bowel movement for about a week. KUB two view today notes at least moderate stool. Patient notes he passed gas yesterday Review of systems No chest pain or shortness of breath. Exam Vital Signs (past 8 hours): - 05/17/18 11:28 05/17/18 13:00 05/17/18 15:49 Temperature 98.2 F 98.1 F 97.5 F L Pulse Rate 67 60 81 Respiratory Rate 16 16 20 Blood Pressure 151/86 H 115/71 139/68 Pulse Oximetry 96 95 95 05/17/18 17:51 Temperature Pulse Rate Respiratory Rate Blood Pressure Pulse Oximetry 96 Oxygen Delivery Method Room Air Oxygen Flow Rate 0 Narrative Exam Narrative: General appearance patient is awake and alert no apparent distress at rest Psychiatric well oriented to time place and person mood is pleasant affect is appropriate Respiratory clear to auscultation with good airflow no wheezes no crackles Cardiovascular regular rate rhythm no murmurs +3 pulses to extremities PMI nondisplaced GI mild tenderness to palpation to epigastric region. Patient notes that the discomfort to his abdomen is significantly improved compared to yesterday. Neurologic no focal neurologic changes cranial nerves 2-12 grossly intact Musculoskeletal 5/5 motor strength range of motion normal no clubbing noted Objective Labs Result Diagrams: 05/17/18 05:31 05/17/18 05:31 Labs: Laboratory Results - last 24 hr 05/17/18 05/17/18 05:31 05:31 WBC 6.5 RBC 4.28 L Hgb 14.4 Hct 41.0 MCV 95.8 MCH 33.5 MCHC 35.0 RDW 12.6 Plt Count 163 Neut % (Auto) 72.5 Lymph % (Auto) 13.9 L [place] % (Auto) 8.9 Eos % (Auto) 4.2 H Baso % (Auto) 0.5 Neut # (Auto) 4700 Sodium 137 Potassium 3.6 Chloride 106 Carbon Dioxide 26 BUN 12 Creatinine 0.80 Estimated GFR > 60.0 BUN/Creatinine Ratio 15.0 Glucose 130 H Calcium 8.4 Magnesium 2.2 Troponin I 0.014 Assessment & Plan Plan: Assessment/Plan Narrative: 1. Acute Duodenitis - suspected secondary to asa/motrin - CT Abd/Pelvis revealed circumferential wall thickening and mucosal hyperemia of the duodenum with adjacent fat stranding and fluid, consistent with acute duodenitis. - patient is afebrile, with no leukocytosis. - continue Protonix IV 40 mg b.i.d., Zofran PRN for nausea, and Morphine for pain control - EGD May 16 acute duodenitis noted - diet advance as tolerated 2. DM - BG stable. Patient takes Metformin at home - Will switch patient to D5NS as patient is NPO - Sliding scale, frequent accuchecks 3. HTN - BP is stable 4. ANA M - CPAP at night 5. Gall bladder cancer - S/p resection and chemotherapy completion in october. Follows up in [place] for 6 month imaging is planned 6. Hepatic Lesion - CT ABd/pelvis revealed 2.1 cm anterior right hepatic lobe lesion, which may represent sequela from prior gallbladder resection versus a hypoattenuating hepatic metastasis. - No comparison abdominal imaging is available. Attention on followup CT of the abdomen recommended - Will have patient follow up outpatient with his usual physicians 7. Hypothyroidism - continue Synthroid medication 8. Hyperlipidemia - Statin resumed 9. Constipation On May 17 Patient notes having no bowel movement for the past 1 week Fleet enema with Dulcolax suppository ordered on May 17 K UB x-ray of abdomen notes at least moderate stool Will provide optimize bowel regimen including senna Colace and MiraLax Consider patient for discharge tomorrow if bowel movement noted Time Spent With Patient Time with patient: 25 - 35 minutes (25 min) Quality VTE Deep Vein Thrombosis/Pulmonary Embolism Present on Admission: No
[2018-05-17] MEDS: DOCUSATE 100 MG CAPSULE 200 MG PO (20:03)
[2018-05-17] MEDS: POLYETHYLENE GLYCOL 3350 17 GM POWD.PACK PO (20:04)
[2018-05-17] MEDS: SENNOSIDES 8.6 MG TABLET 17.2 MG PO (20:04)
[2018-05-17] MEDS: FINASTERIDE 5 MG TABLET PO (20:05)
--- NOTE | 2018-05-17 22:58 | PC.NURSE ---
Pt c/o epigastric discomfort and requests pain meds. Discussed with pt effects of narcotics on bowel function and reinforced to pt attempting to get bowels functioning. Pt given pantoprozole as per emar and reports effective in relieving discomfort. Further pain medication discussed with Dr. Bob per phone conversation who does not issue any further analgesia and suggests morphine not be given for same rationale as above. Pt and pt's spouse acknowledge understanding. No stool at this time. Taking oral fluids well.
[2018-05-18 00:10] VITALS: BP 141/83; PULSE 71; RESP 17; TEMP 36.8; O2SAT 95
[2018-05-18] MEDS: BISMUTH SUBSALICYLATE 525 MG/30 ML SUSP 25 ML PO (02:25)
[2018-05-18 04:00] VITALS: BP 139/84; PULSE 63; RESP 18; TEMP 36.7; O2SAT 95
[2018-05-18] MEDS: PANTOPRAZOLE 20 MG TABLET PO (06:28)
[2018-05-18] MEDS: LEVOTHYROXINE 150 MCG TABLET PO (06:28)
[2018-05-18] MEDS: LEVOTHYROXINE 25 MCG TABLET 12.5 MCG PO (06:28)
[2018-05-18] MEDS: SODIUM CHLORIDE 0.9% 1,000 ML 42 ML IV (06:29)
[2018-05-18 08:00] VITALS: BP 151/96; PULSE 67; RESP 16; TEMP 36.6; O2SAT 95
[2018-05-18] MEDS: ENOXAPARIN 40 MG/0.4 ML SYRINGE SUBCUT (08:43)
[2018-05-18] MEDS: DOCUSATE 100 MG CAPSULE 200 MG PO (08:43)
[2018-05-18] MEDS: POLYETHYLENE GLYCOL 3350 17 GM POWD.PACK PO (08:43)
[2018-05-18] MEDS: metroNIDAZOLE 250 MG TABLET 375 MG PO ×2 (08:43→13:03)
[2018-05-18] MEDS: SENNOSIDES 8.6 MG TABLET 17.2 MG PO (08:44)
[2018-05-18] MEDS: INSULIN ASPART 100 UNIT/ML INSULN PEN SUBCUT (08:44)
[2018-05-18] MEDS: DOXYCYCLINE HYCLATE 100 MG TABLET PO (08:44)
[2018-05-18 12:00] VITALS: BP 168/79; PULSE 72; RESP 16; TEMP 36.6; O2SAT 97
--- NOTE | 2018-05-18 13:43 | P.DS_ITS ---
History of Present Illness Date Patient Seen: 05/18/18 Time Patient Seen: 07:42 Chief complaint: STOMACH PAIN Narrative: Patient admitted to the hospital because of GI distress acute. Patient was on nonsteroidal anti-inflammatories prior to admission. Other other medical conditions include obstructive sleep apnea on CPAP mask at night when he sleeping. History of essential hypertension. Type 2 diabetes. Discharge Providers Date of admission: 05/16/18 08:21 Primary care physician: Michel Becker MD Discharge provider: Abebe Bob MD Summary Discharge Diagnosis: 1. Acute Duodenitis - suspected secondary to asa/motrin - CT Abd/Pelvis revealed circumferential wall thickening and mucosal hyperemia of the duodenum with adjacent fat stranding and fluid, consistent with acute duodenitis. - EGD May 16 acute duodenitis noted 2. DM - Patient takes Metformin at home 3. HTN - BP is stable on discharge 4. ANA M - CPAP at night 5. Gall bladder cancer - S/p resection and chemotherapy completion in october. Follows up in [place] for 6 month imaging is planned 6. Hepatic Lesion - CT ABd/pelvis revealed 2.1 cm anterior right hepatic lobe lesion, which may represent sequela from prior gallbladder resection versus a hypoattenuating hepatic metastasis. - No comparison abdominal imaging is available. Attention on followup CT of the abdomen recommended 7. Hypothyroidism - continue Synthroid 8. Hyperlipidemia - Statin continued on discharge 9. Constipation On May 17 Patient notes having no bowel movement for the past 1 week Fleet enema with Dulcolax suppository ordered on May 17, optimized bowel regimen with senna, Colace and MiraLax provided. KUB x-ray May 17 of abdomen notes at least moderate stool I repeated good bowel movements in a.m. of May 18., patient responded favorably to the regimen as described Hospital Course: Patient is a very pleasant 73 years of age male that presents to the hospital with abdominal pain. Acute duodenitis was identified on EGD. Patient was provided Protonix medication to treat. Diet was advanced and patient tolerated. Patient also noted even had a bowel movement for about a week. He had told me this on May 17. I provided senna MiraLax and Colace at optimum dosing with a duplex suppository and Fleet enema to begin the treatment. Consequent to the treatment patient had several good bowel movements in a.m. today. Patient is quite delighted over the response and is anxious for discharge. Will continue patient on Protonix upon discharge and follow up with his primary care physician is advised in the next 1 week Status at Discharge Cognitive/behavioral status at discharge: Well oriented no apparent distress pleasant mood affect appropriate Functional status at discharge: independent ambulation Time Spent with Patient Greater than 30 minutes (40 min discharge) Exam Vital Signs (past 8 hours): - 05/18/18 08:00 05/18/18 12:00 Temperature 97.9 F 97.9 F Pulse Rate 67 72 Respiratory Rate 16 16 Blood Pressure 151/96 H 168/79 H Pulse Oximetry 95 97 Oxygen Delivery Method Room Air,CPAP Oxygen Flow Rate 0 Narrative Exam Narrative: General appearance he is awake and alert and well oriented no apparent distress Respiratory clear to auscultation with good airflow no wheezes no crackles Cardiovascular regular rate rhythm no murmurs +3 pulses do extremities GI fairly benign soft nontender positive bowel sounds Neurologic no focal neurologic changes cranial nerves 2-12 grossly intact Objective Labs Result Diagrams: 05/17/18 05:31 05/17/18 05:31 Discharge Plan Discharge Plan Patient Disposition: Home Discharge Med Rec/Prescriptions Prescriptions: New pantoprazole [Protonix] 40 mg tablet,delayed release (DR/EC) 40 mg PO BID Qty: 60 RF: 2 Continue montelukast 10 mg tablet 10 mg PO BEDTIME Qty: 30 RF: 5 latanoprost [Xalatan] 0.005 % drops 1 drp OU HS Qty: 2.5 RF: 0 amlodipine [Norvasc] 5 MG tablet 5 mg PO QDAY Qty: 0 RF: 0 levothyroxine 150 MCG tablet 175 mcg PO QAM Qty: 0 RF: 0 levothyroxine 25 MCG tablet 12.5 mcg PO Q OTHER DAY Qty: 0 RF: 0 hydrocodone-acetaminophen 5-325 mg tablet 1 tab PO Q6HP PRN (Reason: pain) Qty: 60 RF: 0 trazodone 50 mg tablet 50 mg PO BEDTIME 90 Days Qty: 90 RF: 1 simvastatin 20 mg tablet 20 mg PO DAILY RF: 0 olopatadine 0.1 % drops 1 dose ophthalmic (eye) DIRECTED RF: 0 triamterene-hydrochlorothiazid 37.5-25 mg tablet 0.5 tab PO DAILY RF: 0 zolpidem 5 mg tablet 5 mg PO BEDTIME RF: 0 fluoxetine 20 mg capsule 20 mg PO DAILY RF: 0 metformin 500 mg tablet extended release 24 hr 500 mg PO BID RF: 0 finasteride 5 mg tablet 5 mg PO DAILY RF: 0 brimonidine-timolol 0.2-0.5 % drops 1 drp ophthalmic (eye) DIRECTED RF: 0 methocarbamol [Robaxin-750] 750 MG tablet 750 mg PO QIDP PRN (Reason: Spasms) RF: 0 levothyroxine 25 mcg tablet 25 mcg PO QMWF RF: 0 Follow up/Referrals: Michel Becker MD [Primary Care Provider] - Provider Discharge Instructions Diet: Carb-consistent/Diabetic Visit Report/Discharge Packet Instructions: Pantoprazole, DI for Duodenitis Visit Report Forms: Stroke Signs & Symptoms Discharge Data Primary Care Provider: Michel Becker Attending Provider: Linda Julian Admit Date/Time: 05/16/18 08:21 Quality VTE Deep Vein Thrombosis/Pulmonary Embolism Present on Admission: No
--- NOTE | 2018-05-18 14:00 | PC.NURSE ---
Patient given prescription to [facility]. Discharge instructions and home care handouts reviewed with patient and his . Patient and state understanding and have no further questions or concerns at this time. Patient instructed to call his PCP with Dr. Becker to schedule a follow up appointment. Patient escorted out via wheelchair by [employer] with all belongings to be discharged to home with .
== END 2018-05-18 14:02 | disposition home or self-care (01) | DRG 384 ==
LOC: ED 20:26 → AC 20:33
PROVIDERS: Emergency Medicine; Specialist; Admitting Provider Internal Medicine; Emergency Provider Emergency Medicine; PCP Family Medicine; Visit Provider Internal Medicine
PROC: 0DJ08ZZ Inspection of Upper Intestinal Tract, Via Natural or Artificial Opening Endoscopic (ICD-10-PCS; CPT 43235; principal; 2018-05-16 10:00)
DX: K26.3 Acute duodenal ulcer without hemorrhage or perforation (principal); C23 Malignant neoplasm of gallbladder; E86.0 Dehydration; K59.00 Constipation, unspecified; E11.9 Type 2 diabetes mellitus without complications; I10 Essential (primary) hypertension; G47.33 Obstructive sleep apnea (adult) (pediatric); N40.0 Benign prostatic hyperplasia without lower urinary tract symptoms; E78.5 Hyperlipidemia, unspecified; E89.0 Postprocedural hypothyroidism; Z87.891 Personal history of nicotine dependence; Z79.84 Long term (current) use of oral hypoglycemic drugs
CPT/HCPCS: 36415; 36591; 71045; 74019; 74177; 80048; 80053; 82550; 82553; 82962; 83690; 83735; 84484; 85025; 85610; 85730; 88305; 93005; 96361; 96374; 96375; 96376; 99283; 99285; G0378; C9113; J1170; J1650; J2250; J2270; J2405; J3010; Q9967

== ENCOUNTER → 2018-10-07 16:58 | Outpatient (CLI) | payer MEDICARE, SELFPAY ==
[2018-10-07 17:58] LABS: Add Manual Diff / Slide Review NO; Basophils Absolute Auto 0 /uL (0-100); Basophils Percent Auto 0.7 % (0-2); Eosinophils Absolute Auto 200 /uL (0-450); Eosinophils Percent Auto 4.3 % (2-4); Hematocrit 42.7 % (41-53); Hemoglobin 14.3 g/dL (13.5-17.5); Lymphocytes Absolute Auto 900 /uL (1100-4500); Lymphocytes Percent Auto 16.9 % (25-40); Mean Corpuscular HGB Conc 33.5 % (30-36); Mean Corpuscular Volume 98.3 fL (80-100); Monocytes Absolute Auto 400 /uL (0-900); Monocytes Percent Auto 8.6 % (3-14); Neutrophils Absolute Auto 3600 /uL (1500-7000); Neutrophils Percent Auto 69.5 % (50-75); Platelet Count 167 X10^3/uL (150-400); Red Blood Cell Count 4.35 X10^6/uL (4.5-5.9); White Blood Cell Count 5.2 X10^3/uL (4.5-11.0)
[2018-10-07 18:05] LABS: Alanine Aminotransferase 40 IU/L (21-72); Albumin 3.8 g/dL (3.5-5.0); Albumin Globulin Ratio 1.4 (1.0-2.8); Alkaline Phosphatase 59 U/L (38-126); Aspartate Aminotransferase 27 IU/L (17-59); Bilirubin Total 1.1 mg/dL (0.2-1.3); Blood Urea Nitrogen 19 mg/dL (9-20); Calcium 9.3 mg/dL (8.4-10.2); Carbon Dioxide 27 mmol/L (22-32); Chloride 101 mmol/L (98-107); Estimated Glomerular Filt Rate > 60.0 mL/min (>60); Globulin 2.7 g/dL (1.7-4.1); Glucose 105 mg/dL (80-110); HEMOLYSIS < 15 (0-50); Potassium 4.4 mmol/L (3.4-5.1); Prothrombin Time 12.1 SECONDS (10.1-12.7); Sodium 137 mmol/L (137-145); Total Protein 6.5 g/dL (6.3-8.2)
[2018-10-10 20:16] LABS: Cancer (Carbohydrate) Ag 19-9 5 U/mL (< 34)
== END ==
PROVIDERS: PCP Student in an Organized Health Care Education/Training Program; Visit Provider Radiology Radiation Oncology
DX: C23 Malignant neoplasm of gallbladder (principal)
CPT/HCPCS: 36415; 80053; 85025; 85610; 86301

== ENCOUNTER → 2019-01-19 12:37 | Outpatient (CLI) | payer MEDICARE, SELFPAY ==
[2019-01-19 13:56] LABS: Add Manual Diff / Slide Review NO; Basophils Absolute Auto 0 /uL (0-100); Basophils Percent Auto 0.7 % (0-2); Eosinophils Absolute Auto 400 /uL (0-450); Eosinophils Percent Auto 6.7 % (2-4); Hematocrit 42.2 % (41-53); Hemoglobin 14.3 g/dL (13.5-17.5); Lymphocytes Absolute Auto 1000 /uL (1100-4500); Lymphocytes Percent Auto 17.2 % (25-40); Mean Corpuscular HGB Conc 33.9 % (30-36); Mean Corpuscular Hemoglobin 33.1 PG (26-34); Mean Corpuscular Volume 97.4 fL (80-100); Monocytes Absolute Auto 400 /uL (0-900); Monocytes Percent Auto 7.8 % (3-14); Neutrophils Absolute Auto 3900 /uL (1500-7000); Neutrophils Percent Auto 67.6 % (50-75); Platelet Count 169 X10^3/uL (150-400); Red Blood Cell Count 4.33 X10^6/uL (4.5-5.9); Red Cell Distribution Width 13.4 % (11.6-14.8); White Blood Cell Count 5.7 X10^3/uL (4.5-11.0)
[2019-01-19 15:36] LABS: Alanine Aminotransferase 38 IU/L (21-72); Albumin 3.9 g/dL (3.5-5.0); Albumin Globulin Ratio 1.5 (1.0-2.8); Alkaline Phosphatase 85 U/L (38-126); Aspartate Aminotransferase 29 IU/L (17-59); Bilirubin Total 0.9 mg/dL (0.2-1.3); Blood Urea Nitrogen 24 mg/dL (9-20); Calcium 9.8 mg/dL (8.4-10.2); Carbon Dioxide 29 mmol/L (22-32); Chloride 103 mmol/L (98-107); Estimated Glomerular Filt Rate > 60.0 mL/min (>60); Globulin 2.6 g/dL (1.7-4.1); Glucose 137 mg/dL (80-110); HEMOLYSIS < 15 (0-50); Potassium 4.8 mmol/L (3.4-5.1); Sodium 140 mmol/L (137-145); Total Protein 6.5 g/dL (6.3-8.2)
[2019-01-21 16:33] LABS: Cancer (Carbohydrate) Ag 19-9 10 U/mL (< 34)
== END ==
PROVIDERS: PCP Student in an Organized Health Care Education/Training Program; Visit Provider Internal Medicine Hematology & Oncology
DX: C23 Malignant neoplasm of gallbladder (principal)
CPT/HCPCS: 36415; 80053; 82378; 85025; 86301

== ENCOUNTER → 2020-01-18 12:16 | Outpatient (CLI) | payer MEDICARE, SELFPAY ==
[2020-01-18 13:56] LABS: Add Manual Diff / Slide Review NO; Basophils Absolute Auto 0 /uL (0-100); Basophils Percent Auto 0.8 % (0-2); Eosinophils Absolute Auto 300 /uL (0-450); Eosinophils Percent Auto 5.9 % (2-4); Hematocrit 42.6 % (41-53); Hemoglobin 14.8 g/dL (13.5-17.5); Lymphocytes Absolute Auto 800 /uL (1100-4500); Lymphocytes Percent Auto 14.3 % (25-40); Mean Corpuscular HGB Conc 34.7 % (30-36); Mean Corpuscular Hemoglobin 33.5 PG (26-34); Mean Corpuscular Volume 96.5 fL (80-100); Monocytes Absolute Auto 400 /uL (0-900); Neutrophils Absolute Auto 4000 /uL (1500-7000); Platelet Count 175 X10^3/uL (150-400); Red Blood Cell Count 4.41 X10^6/uL (4.5-5.9); Red Cell Distribution Width 12.7 % (11.6-14.8); White Blood Cell Count 5.6 X10^3/uL (4.5-11.0)
[2020-01-18 14:09] LABS: Alanine Aminotransferase 28 IU/L (<50); Albumin Globulin Ratio 1.3 (1.0-2.8); Alkaline Phosphatase 59 U/L (38-126); Aspartate Aminotransferase 28 IU/L (17-59); BUN Creatinine Ratio 19.8 (6-22); Blood Urea Nitrogen 24 mg/dL (9-20); Calcium 9.5 mg/dL (8.4-10.2); Carbon Dioxide 27 mmol/L (22-32); Chloride 103 mmol/L (98-107); Cholesterol 123 mg/dL (140-199); Estimated Glomerular Filt Rate 58.8 mL/min (>60); Globulin 3.1 g/dL (1.7-4.1); Glucose 168 mg/dL (80-110); HDL Cholesterol 37 mg/dL (40-60); HEMOLYSIS < 15 (0-50); LDL Cholesterol Calculated 59 mg/dL (<100); Potassium 4.9 mmol/L (3.4-5.1); Sodium 137 mmol/L (137-145); Total Protein 7.1 g/dL (6.3-8.2); Triglycerides 137 mg/dL (35-150)
[2020-01-18 14:36] LABS: Free T4, Direct Thyroxine 1.43 ng/dL (0.78-2.19)
[2020-01-18 14:50] LABS: TSH w/ Reflex to FT4 2.26 uIU/mL (0.47-4.68)
== END ==
PROVIDERS: PCP Student in an Organized Health Care Education/Training Program; Referring Provider Internal Medicine Cardiovascular Disease; Visit Provider Internal Medicine Cardiovascular Disease
DX: E78.2 Mixed hyperlipidemia (principal); I10 Essential (primary) hypertension; R73.09 Other abnormal glucose
CPT/HCPCS: 36415; 80053; 80061; 83036; 84439; 84443; 85025

== ENCOUNTER → 2022-01-23 13:22 | Outpatient (CLI) | payer MEDICARE, SELFPAY ==
[2022-01-17 14:29] VITALS: BMI 36.2
--- NOTE | 2022-01-23 13:28 | DI.CT.S_ITS ---
PROCEDURE: CT LUMBAR SPINE WO CON INDICATIONS: Spinal stenosis, lumbar region TECHNIQUE: Noncontrast 3 mm thick sections acquired from the T12 level to the sacrum. Sagittal and coronal reformats were constructed. For radiation dose reduction, the following was used: automated exposure control. COMPARISON: None. FINDINGS: Image quality: Excellent. Bones: There is trace, approximately 2 millimeters of L1-L2, L2-L3 and L3-L4 retrolisthesis. There is trace, approximately 5 millimeters of L4-L5 anterolisthesis. There is approximately 15? of convex left lumbar spine scoliosis. No acute vertebral body compression fractures. No suspicious lytic or blastic bony lesions. No pars defects. Severe L3-L4 and L4-L5 degenerative disc changes. Moderate L4-L5 degenerative disc changes. Mild L1-L2 and L5-S1 degenerative disc changes. Moderate L3-L4 and L4-L5 facet hypertrophy. Mild L1-L2, L2-L3 and L5-S1 facet hypertrophy. Severe L4-L5 central canal narrowing. Moderate to severe L3-L4 central canal narrowing. Severe bilateral L3-L4 neural foraminal narrowing. Severe right L2-L3 neural foraminal narrowing. Soft tissues: No retroperitoneal masses or hematomas. Visualized aorta is normal in caliber. IMPRESSION: 1. Multilevel degenerative disc disease. 2. Multilevel facet arthropathy. 3. Severe L4-L5 central canal narrowing. 4. Severe bilateral L3-L4 neural foraminal narrowing. Severe right L2-L3 neural foraminal narrowing. 5. No vertebral body compression fracture. Dictated by: Mali Reveles MD, PhD on 01/23/2022 at 15:59 Approved by: Mali Reveles MD, PhD on 01/23/2022 at 16:05
== END ==
PROVIDERS: PCP Family Medicine; Referring Provider Orthopaedic Surgery Orthopaedic Surgery of the Spine; Visit Provider Orthopaedic Surgery Orthopaedic Surgery of the Spine
DX: M48.061 Spinal stenosis, lumbar region without neurogenic claudication (principal); M51.36 Other intervertebral disc degeneration, lumbar region; M47.816 Spondylosis without myelopathy or radiculopathy, lumbar region
CPT/HCPCS: 72131